=== PATIENT | male | born 1945 | race Caucasian/White ===

== ENCOUNTER → 2018-01-14 | Outpatient (CLI) | payer OTHER ==
[~2018-01-14] MED LIST: IOPAMIDOL (ISOVUE-300) 100 ML BTL ONE
== END ==
LOC: FIMAGING 11:18
PROVIDERS: ATTEND Internal Medicine Hematology & Oncology
DX: C40.00 Malignant neoplasm of scapula and long bones of unspecified upper limb (principal); R22.31 Localized swelling, mass and lump, right upper limb
CPT/HCPCS: 71260; 73201; 74177; Q9967

== ENCOUNTER → 2018-08-19 | Outpatient (CLI) | payer OTHER | LOC: FIMAGING 11:44 | DX: C40.01 Malignant neoplasm of scapula and long bones of right upper limb (principal) | CPT/HCPCS: 71260; 73201; 74177; Q9967; 82565-PO ==

== ENCOUNTER → 2019-01-22 | Outpatient (CLI) | payer OTHER | LOC: FIMAGING 11:35 ==